=== PATIENT | male | born 1980 | race Caucasian/White ===

== ENCOUNTER 2021-02-25 15:06 | Outpatient (REF) | payer OTHER, SELFPAY ==
[2021-02-25 15:44] LABS: COVID-19 Test Negative (Negative)
== END 2021-02-25 15:07 | disposition home or self-care (01) ==
LOC: HO.LAB 15:06
PROVIDERS: Visit Provider Internal Medicine
DX: Z20.822 Contact with and (suspected) exposure to COVID-19 (principal)
CPT/HCPCS: 36415; 87635; C9803

== ENCOUNTER 2022-09-24 10:38 | Emergency (ER) | payer MEDICAID, SELFPAY ==
[2022-09-24 11:07] VITALS: BP 141/87; PULSE 51; RESP 20; TEMP 35.9; O2SAT 97; BMI 28.5
--- NOTE | 2022-09-24 12:27 | PC.NURSE ---
informed by provider that pt is no longer in room
== END 2022-09-24 12:27 | disposition left against medical advice (07) ==
PROVIDERS: Emergency Provider Emergency Medicine
DX: S29.9XXA Unspecified injury of thorax, initial encounter (principal); W19.XXXA Unspecified fall, initial encounter; Y93.9 Activity, unspecified; Y92.9 Unspecified place or not applicable; Y99.9 Unspecified external cause status
CPT/HCPCS: 99281